=== PATIENT | female | born 1990 | race African-American/Black ===

== ENCOUNTER 2022-01-24 15:42 | Emergency (ER) | payer OTHER ==
[~2022-01-24] VITALS: Ht 177.8 cm; Wt 90.0 kg
[2022-01-24 17:42] LABS: CHLORIDE 110 mEq/L (98-107)
[2022-01-24 17:45] LABS: BASOPHILS % 0.2 % (0.0-2.0); EOSINOPHILS % 0.5 % (0.0-5.0); HEMATOCRIT. 21.9 % (36.0-48.0); LYMPHOCYTES % 11.2 % (20.0-50.0); MEAN CORPUSCULAR HEMOGLOBIN 28.7 pg (28.0-32.0); MEAN CORPUSCULAR VOLUME 89.8 fL (81.0-99.0); MONOCYTES % 3.1 % (2.0-8.0); PLATELET 417 x1000/uL (130-400); RED BLOOD CELL COUNT 2.44 mill/uL (4.2-5.4); RED CELL DISTRIBUTION WIDTH 15.1 % (11.6-14.6)
[2022-01-24] MEDS ORDERED: MISOPROSTOL 200MCG TABLET PO ONE (19:30)
[2022-01-24] MEDS ORDERED: METH PO (19:30)
[2022-01-24 21:20] VITALS: BP 145/66
== END 2022-01-24 22:00 | disposition home or self-care (01) ==
LOC: ER 15:42 → CANBEDREQ 01-25 08:40
DX: N93.8 Other specified abnormal uterine and vaginal bleeding (principal); R51.9 Headache, unspecified; Z98.890 Other specified postprocedural states
CPT/HCPCS: 36415; 76830; 76856; 80053; 85025; 86850; 86900; 86920; 99284

== ENCOUNTER 2022-01-26 09:38 | Emergency (ER) | payer MEDICAID, OTHER ==
[~2022-01-26] VITALS: Ht 172.7 cm; Wt 77.0 kg
[~2022-01-26 09:38] MED LIST: METH PO
[2022-01-26] MEDS ORDERED: SODIUM CHLORIDE 0.9% 1,000 ML IV ONE (10:00)
[2022-01-26 10:18] LABS: BASOPHILS % 0.2 % (0.0-2.0); EOSINOPHILS % 0.4 % (0.0-5.0); LYMPHOCYTES % 20.2 % (20.0-50.0); MEAN CORPUSCULAR HEMOGLOBIN 28.5 pg (28.0-32.0); MEAN CORPUSCULAR VOLUME 92.6 fL (81.0-99.0); MEAN PLATELET VOLUME 8.1 fl (7.4-10.4); MONOCYTES % 3.8 % (2.0-8.0); NEUTROPHILS % 75.4 % (40.0-76.0); PLATELET 497 x1000/uL (130-400); RED BLOOD CELL COUNT 2.11 mill/uL (4.2-5.4); RED CELL DISTRIBUTION WIDTH 15.7 % (11.6-14.6)
[2022-01-26 10:20] LABS: HEMATOCRIT. 19.6 % (36.0-48.0)
[2022-01-26 10:21] LABS: CHLORIDE 107 mEq/L (98-107)
[2022-01-26 10:31] LABS: B-HCG QUANTITATIVE 5 mIU/mL (<3)
[2022-01-26] MEDS ORDERED: IOHEXOL-350 100 ML BOTTLE ONE (11:38)
[2022-01-26] MEDS ORDERED: ACETAMINOPHEN 325MG TABLET PO NR (15:00)
[2022-01-26 15:18] VITALS: BP 112/62
== END 2022-01-26 15:09 | disposition short-term general hospital (02) ==
LOC: ER 09:38 → CANBEDREQ 01-27 13:44
DX: N93.9 Abnormal uterine and vaginal bleeding, unspecified (principal); D64.9 Anemia, unspecified; Z98.890 Other specified postprocedural states; Z20.822 Contact with and (suspected) exposure to COVID-19
CPT/HCPCS: 36415; 74174; 80053; 84702; 85025; 86850; 86900; 86901; 86920; 87426; 96360; 96361; 99291; C9803; J7030; Q9967; P9016